=== PATIENT | female | born 1960 | race African-American/Black ===

== ENCOUNTER 2019-09-18 01:11 | Day surgery (SDC) | payer OTHER, SELFPAY ==
[2019-09-11 14:51] VITALS: BMI 23.1
--- NOTE | 2019-09-18 09:39 | SUR.PREOP ---
0939 Called patient with Covid results which were negative. Tabatha SANTOS
[2019-09-18 11:42] VITALS: BP 112/68; PULSE 80; RESP 16; TEMP 36.6; O2SAT 97
[2019-09-18] MEDS: LACTATED RINGERS 1,000 ML 150 ML IV CONT (11:58)
--- NOTE | 2019-09-18 12:04 | P.PNAN_ITS ---
Anes - Initial Pre Proc Eval Procedure: Operation Date: 09/18/19 13:00 Proposed Procedures p Esophagogastroduodenoscopy - Martin Cruz MD Date/Time: 09/18/19 12:04 Surgeon: Martin Cruz MD Pre Op Diagnosis: Dysphagia Patient Data Age: 59 Gender: F Height: 1.78 m Weight: 73 kg Last Vital Signs Temp 36.6 C 09/18/19 11:42 Pulse 80 09/18/19 11:42 Resp 16 09/18/19 11:42 BP 112/68 09/18/19 11:42 Pulse Ox 97 09/18/19 11:42 Allergies Allergy/AdvReac Type Severity Reaction Status Date / Time sulfanilamide Allergy Intermediate Rash Verified 09/18/19 11:40 Sulfa (Sulfonamide Allergy Unknown Rash Verified 09/18/19 11:40 Antibiotics) Home Medications Medication Instructions Recorded Confirmed Type albuterol sulfate 90 mcg/actuation 2 puff INHALATION Q4-6H PRN gm 05/16/19 09/11/19 History aerosol inhaler betamethasone valerate 0.1 % 1 applic TOPICAL BID PRN 05/16/19 09/11/19 History topical cream cyanocobalamin (vitamin B-12) 1,000 mcg IM MONTHLY 05/16/19 09/11/19 History 1,000 mcg/mL injection solution folic acid 1 mg tablet 1 mg PO DAILY 05/16/19 09/11/19 History levothyroxine 100 mcg tablet 100 mcg PO DAILY 05/16/19 09/11/19 History mometasone 50 mcg/actuation nasal 2 spray NASAL DAILY 05/16/19 09/11/19 History spray montelukast 10 mg tablet 10 mg PO DAILY 05/16/19 09/11/19 History omega-3 fatty acids 1,000 mg 1,000 mg PO DAILY 05/16/19 09/11/19 History capsule escitalopram oxalate 10 mg tablet 10 mg PO DAILY #30 tablet 05/19/19 09/11/19 Rx pantoprazole 20 mg tablet,delayed 20 mg PO QAM #30 tablet 05/19/19 09/11/19 Rx release fluticasone propion-salmeterol 1 puff INHALATION Q12H PRN 05/14/20 05/14/20 History [AirDuo [employer]piClick] potassium chloride 10 meq PO DAILY 09/11/19 09/11/19 History Patient hx anesthesia problems: none Family hx anesthesia problems: none [facility] Past Medical History Medical History (Updated 09/18/19 @ 10:56 by Av Barber DO) Anxiety Asthma Colon polyp Early satiety Hypothyroidism Social History Social History Smoking status: Never smoker Second hand tobacco smoke exposure: No Alcohol intake: current Anes - Eval Final PreProcedure Day of Procedure 09/18/19 12:04 Patient weight: normal Heart: regular rate and rhythm Lungs: clear to auscultation and normal air movement Airway: Mallampati scale Neurological: alert and oriented Last oral intake: >/= 8 hours ASA classification: II Emergent: no Anesthetic plan: proceed Anesthesia type and monitoring: general GIVS and standard monitoring Informed Consent: The patient's anesthetic plan and its attendant risks and benefits were discussed with the patient/family/POA. Questions were solicited and answers provided to the satisfaction of the patient/family/POA.
--- NOTE | 2019-09-18 12:55 | WPDHPUPDATE1 ---
History and Physical Update Update Date/Time: 09/18/19 12:55 History and Physical has been reviewed, including an updated exam of the patient. There are NO changes in the patient's condition. Risks, benefits, and alternatives have been discussed and questions answered. Patient agrees to proceed with procedure.
[2019-09-18 13:01] VITALS: BP 94/58; PULSE 80; RESP 19; O2SAT 94
--- NOTE | 2019-09-18 13:10 | PM.HPGS ---
History of Present Illness History of Present Illness Consent: Risks, benefits, and alternatives have been discussed and questions answered. Patient agrees to proceed with procedure. Chief complaint: Dysphagia Narrative: Dajuan Castaneda is a 59 year old female here for dysphagia Review of Systems Constitutional: Constitutional: Denies headache(s) and Denies weakness Eyes: Eyes: Denies blurry vision ENT: Reports Normal hearing present, Denies headache(s) and Denies neck pain Cardiovascular: Cardiovascular: Denies chest pain and Denies dyspnea Respiratory: Respiratory: Denies dyspnea Gastrointestinal: Gastrointestinal: Reports no additional gastrointestinal complaints Genitourinary: Genitourinary: Denies dysuria Musculoskeletal: Musculoskeletal: Denies neck pain Integumentary/Breasts: Skin/Breast: Denies dry skin Neurologic: Reports Normal hearing present, Denies headache(s) and Denies weakness Psychiatric: Psychiatric: Denies anxiety Endocrine: Endocrine: Denies change in body appearance Hematologic/Lymphatic: Hematologic/Lymphatic: Denies easy bleeding Allergic/Immunologic: Allergic/Immunologic: Denies urticaria PMFSH Past Medical History Medical History (Updated 09/18/19 @ 10:56 by Av Barber DO) Anxiety Asthma Colon polyp Early satiety Hypothyroidism Social History Social History Smoking status: Never smoker Second hand tobacco smoke exposure: No Alcohol intake: current Meds Home Medications and Allergies Home Medications Medication Instructions Recorded Confirmed Type albuterol sulfate 90 mcg/actuation 2 puff INHALATION Q4-6H PRN gm 05/16/19 09/11/19 History aerosol inhaler betamethasone valerate 0.1 % 1 applic TOPICAL BID PRN 05/16/19 09/11/19 History topical cream cyanocobalamin (vitamin B-12) 1,000 mcg IM MONTHLY 05/16/19 09/11/19 History 1,000 mcg/mL injection solution folic acid 1 mg tablet 1 mg PO DAILY 05/16/19 09/11/19 History levothyroxine 100 mcg tablet 100 mcg PO DAILY 05/16/19 09/11/19 History mometasone 50 mcg/actuation nasal 2 spray NASAL DAILY 05/16/19 09/11/19 History spray montelukast 10 mg tablet 10 mg PO DAILY 05/16/19 09/11/19 History omega-3 fatty acids 1,000 mg 1,000 mg PO DAILY 05/16/19 09/11/19 History capsule escitalopram oxalate 10 mg tablet 10 mg PO DAILY #30 tablet 05/19/19 09/11/19 Rx pantoprazole 20 mg tablet,delayed 20 mg PO QAM #30 tablet 05/19/19 09/11/19 Rx release fluticasone propion-salmeterol 1 puff INHALATION Q12H PRN 09/11/19 09/11/19 History [AirDuo RespiClick] potassium chloride 10 meq PO DAILY 09/11/19 09/11/19 History Allergies Allergy/AdvReac Type Severity Reaction Status Date / Time sulfanilamide Allergy Intermediate Rash Verified 09/18/19 11:40 Sulfa (Sulfonamide Allergy Unknown Rash Verified 09/18/19 11:40 Antibiotics) Exam Const: General: comfortable and no acute distress HENMT: General nose exam: Normal nares present Eyes: General: appearance normal, both eyes and all related structures Neck: Neck: no JVD Resp: Auscultation: clear to auscultation bilaterally Cardio: Rate: regular rate Rhythm: regular rhythm GI: Inspection: non-distended GI Palp: Yes Soft to palpation Skin: General skin exam: normal color Neuro: General: gait normal Speech: normal speech Extrem: General: normal to inspection Psych: Mental Status: mental status grossly normal Assessment and Plan Assessment and plan (1) Early satiety: Code(s): R68.81 - Early satiety Status: Acute Assessment and Plan: will proceed with egd
[2019-09-18 13:11] VITALS: BP 96/63; PULSE 67; RESP 14; O2SAT 97
[2019-09-18 13:21] VITALS: BP 107/79; PULSE 68; RESP 16; O2SAT 100
== END 2019-09-18 13:33 | disposition home or self-care (01) ==
PROVIDERS: PCP Internal Medicine; Visit Provider Internal Medicine Gastroenterology
PROC: 0DJ08ZZ Inspection of Upper Intestinal Tract, Via Natural or Artificial Opening Endoscopic (ICD-10-PCS; CPT 43235; principal; 2019-09-18 13:00)
DX: R13.10 Dysphagia, unspecified (principal); K44.9 Diaphragmatic hernia without obstruction or gangrene; K29.50 Unspecified chronic gastritis without bleeding; K20.9 Esophagitis, unspecified; J45.909 Unspecified asthma, uncomplicated; E03.9 Hypothyroidism, unspecified; F41.9 Anxiety disorder, unspecified
CPT/HCPCS: 43239; 88305; J2704; J7120

== ENCOUNTER 2019-10-26 07:26 | Outpatient (CLI) | payer OTHER, SELFPAY ==
--- NOTE | ~2019-10-26 | US_ITS ---
EXAMINATION: US abdomen complete DATE: 10/26/2019 09:02 INDICATION: Unspecified abdominal pain TECHNIQUE: Multiple grayscale and Doppler ultrasound images of the abdomen were obtained. COMPARISON: CT, 02/10/2014 FINDINGS: The head and and body of the pancreas are normal. The pancreatic tail is obscured by bowel gas. The liver is normal with normal echogenicity and echotexture. No surface nodularity. Normal hepa topetal flow in the main portal vein. The gallbladder is normal with no abnormal wall thickening, per icholecystic fluid or stones. The normal common bile duct measures 3 mm. There was no sonographic Mur phy sign. The visualized portions of the aorta and inferior vena cava are normal. The right kidney measures 9.4 x 4.6 x 5.4 cm. The left kidney measures 8.9 x 4.5 x 5.2 cm. There are multiple echogenic foci throughout both kidneys, consistent with calcifications previously described bilateral medullary nephrocalcinosis. There is no hydronephrosis. The spleen is normal in appearance and measures 8.8 cm. IMPRESSION: 1. 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 2. No acute findings identified. Reviewed, dictated and finalized at location A.
== END 2019-10-26 07:27 | disposition home or self-care (01) ==
PROVIDERS: PCP Internal Medicine; Visit Provider Physician Assistant
DX: R10.9 Unspecified abdominal pain (principal)
CPT/HCPCS: 76700